=== PATIENT | female | born 1955 | race Caucasian/White ===

== ENCOUNTER 2018-02-02 09:29 | Emergency (ER) | payer OTHER ==
[~2018-02-02] VITALS: Ht 162.6 cm; Wt 104.3 kg
[2018-02-02] MEDS ORDERED: ASPIRIN325 PO (09:49)
[2018-02-02] MEDS ORDERED: IBUPROFEN 800800 M1 PO (09:49)
[2018-02-02] MEDS ORDERED: NORCO 5-325 TA1 EACH PO (10:24)
[2018-02-02 10:33] VITALS: BP 162/87
== END 2018-02-02 10:34 | disposition home or self-care (01) ==
LOC: M.ERS 09:29
DX: M25.552 Pain in left hip (principal); F17.210 Nicotine dependence, cigarettes, uncomplicated